=== PATIENT | female | born 1950 | race Caucasian/White ===

== ENCOUNTER → 2023-12-19 07:29 | Outpatient (REF) | payer OTHER, SELFPAY | LOC: RAD 07:29 | PROVIDERS: ATTENDING PHYSICIAN Nurse Practitioner Family | DX: Z87.891 Personal history of nicotine dependence (principal) | CPT/HCPCS: 71271 ==

== ENCOUNTER → 2024-01-01 08:03 | Outpatient (REF) | payer OTHER, SELFPAY | LOC: RAD 08:03 | PROVIDERS: ATTENDING PHYSICIAN Nurse Practitioner Family | DX: M81.0 Age-related osteoporosis without current pathological fracture (principal) | CPT/HCPCS: 77080 ==

== ENCOUNTER → 2024-01-07 07:54 | Outpatient (REF) | payer OTHER, SELFPAY | LOC: PET 07:54 | PROVIDERS: ATTENDING PHYSICIAN Nurse Practitioner Family | DX: R91.8 Other nonspecific abnormal finding of lung field (principal); Z85.3 Personal history of malignant neoplasm of breast | CPT/HCPCS: 78815; A9552 ==

== ENCOUNTER → 2024-01-28 09:30 | Outpatient (REF) | payer OTHER, SELFPAY ==
[2024-01-28] VITALS (8 sets, daily range): BP systolic 74–146; BP diastolic 77–100
[2024-01-28 10:11] LABS: % Basophils 0.5 % (0-2); % Eosinophils 1.6 % (0-6); % Immature Granulocytes 0.9 % (0-0.5); % Lymphocytes 35.7 % (20.5-51.1); % Monocytes 8.4 % (1.7-9.3); % Neutrophils 52.9 % (42.2-75.2); Absolute Eosinophils 0.1 10^3/uL (0-0.7); Absolute Immature Granulocytes 0.1 10^3/uL (0-0.05); Absolute Monocytes 0.5 10^3/uL (0.1-0.6); Absolute Neutrophils 2.9 10^3/uL (1.4-6.5); Hematocrit 35.4 % (37.0-47.0); Hemoglobin 11.3 g/dL (12.0-16.0); Mean Corp Hgb Conc. 31.9 g/dL (33.0-37.0); Mean Corpuscular Hgb 29.7 pg (27.0-31.0); Mean Corpuscular Volume 93.2 fL (81.0-99.0); Mean Platelet Volume 8.8 fL (7.4-10.4); Nucleated Red Blood Cells % 0 %; Platelet Count 241 10^3/uL (130-400); White Blood Cell Count 5.5 10^3/uL (4.8-10.8)
[2024-01-28 10:23] LABS: INR 0.94; PT 12.8 Sec (11.4-14.6)
== END ==
LOC: RADI 09:30
PROVIDERS: ATTENDING PHYSICIAN Internal Medicine Hematology & Oncology; FAMILY PHYSICIAN Nurse Practitioner Family
DX: C79.51 Secondary malignant neoplasm of bone (principal); C50.112 Malignant neoplasm of central portion of left female breast; D68.8 Other specified coagulation defects
CPT/HCPCS: 88307; 88311; 20225; 36415; 77012; 85025; 85610; 88333; 88334; 88341; 88342; 88360; 99152; 99153

== ENCOUNTER → 2024-03-07 08:25 | Outpatient (REF) | payer OTHER, SELFPAY ==
[2024-03-07 08:50] VITALS: BP 122/78; BP_SYST 72
[2024-03-07] MEDS: ANCEF 10 IV (09:11)
[2024-03-07 10:34] VITALS: BP 131/49
== END ==
LOC: RADI 08:25
PROVIDERS: ATTENDING PHYSICIAN Internal Medicine Hematology & Oncology; FAMILY PHYSICIAN Nurse Practitioner Family
DX: C50.112 Malignant neoplasm of central portion of left female breast (principal); C79.51 Secondary malignant neoplasm of bone
CPT/HCPCS: 36561; 76937; 77001; 99152; 99153; C1788

== ENCOUNTER → 2024-03-10 16:28 | Outpatient (REF) | payer OTHER, SELFPAY ==
[2024-03-10 12:43] LABS: % Basophils 0.8 % (0-2); % Eosinophils 5.2 % (0-6); % Immature Granulocytes 0.6 % (0-0.5); % Lymphocytes 37.8 % (20.5-51.1); % Monocytes 6.8 % (1.7-9.3); % Neutrophils 48.8 % (42.2-75.2); Absolute Eosinophils 0.3 10^3/uL (0-0.7); Absolute Monocytes 0.4 10^3/uL (0.1-0.6); Absolute Neutrophils 2.5 10^3/uL (1.4-6.5); Hematocrit 30.6 % (37.0-47.0); Hemoglobin 9.9 g/dL (12.0-16.0); Mean Corp Hgb Conc. 32.4 g/dL (33.0-37.0); Mean Corpuscular Hgb 30.2 pg (27.0-31.0); Mean Corpuscular Volume 93.3 fL (81.0-99.0); Mean Platelet Volume 8.6 fL (7.4-10.4); Platelet Count 214 10^3/uL (130-400); Red Blood Cell Count 3.28 10^6/uL (4.20-5.40); Red Cell Dist. Width 17.1 % (11.5-14.5); White Blood Cell Count 5.2 10^3/uL (4.8-10.8)
[2024-03-10 13:22] LABS: ALT (SGPT) 153 U/L (0-35); AST (SGOT) 102 U/L (14-36); Alkaline Phosphatase 287 U/L (38-126); Blood Urea Nitrogen 18 mg/dl (7-17); Calcium 8.7 mg/dl (8.4-10.2); Carbon Dioxide 27 mmol/L (22-30); Chloride 101 mmol/L (98-107); Glucose 96 mg/dl (70-99); Potassium 4.2 mmol/L (3.5-5.1); Sodium 137 mmol/L (135-145); Total Bilirubin 0.7 mg/dl (0.2-1.3); Total Protein 6.9 g/dl (6.3-8.2); eGFR > 60.00
[2024-03-10 13:38] LABS: Free T3 3.15 pg/ml (2.77-5.27); Free T4 1.03 ng/dl (0.78-2.19)
[2024-03-10 13:52] LABS: TSH 3.58 uIU/ml (0.47-4.68)
== END ==
LOC: OIDL 16:28
PROVIDERS: ATTENDING PHYSICIAN Internal Medicine Hematology & Oncology
DX: C50.112 Malignant neoplasm of central portion of left female breast (principal)
CPT/HCPCS: 80053; 84439; 84443; 84481; 85025; 86300

== ENCOUNTER → 2024-03-12 13:42 | Outpatient (REF) | payer OTHER, SELFPAY | LOC: RAD 13:42 | PROVIDERS: ATTENDING PHYSICIAN Nurse Practitioner Adult Health; FAMILY PHYSICIAN Nurse Practitioner Family | DX: R74.01 Elevation of levels of liver transaminase levels (principal); C50.112 Malignant neoplasm of central portion of left female breast; C79.51 Secondary malignant neoplasm of bone | CPT/HCPCS: 76700 ==

== ENCOUNTER → 2024-03-13 15:40 | Outpatient (REF) | payer OTHER, SELFPAY | LOC: WDC 15:40 | PROVIDERS: ATTENDING PHYSICIAN Nurse Practitioner Family | DX: Z12.31 Encounter for screening mammogram for malignant neoplasm of breast (principal) | CPT/HCPCS: 77063; 77067 ==

== ENCOUNTER → 2024-03-31 13:01 | Outpatient (REF) | payer OTHER, SELFPAY ==
[2024-03-31 12:45] LABS: % Basophils 0.6 % (0-2); % Eosinophils 1.9 % (0-6); % Immature Granulocytes 0.8 % (0-0.5); % Monocytes 11.9 % (1.7-9.3); % Neutrophils 48.8 % (42.2-75.2); Absolute Eosinophils 0.1 10^3/uL (0-0.7); Absolute Lymphocytes 1.7 10^3/uL (1.2-3.4); Absolute Monocytes 0.6 10^3/uL (0.1-0.6); Absolute Neutrophils 2.3 10^3/uL (1.4-6.5); Hematocrit 31.8 % (37.0-47.0); Hemoglobin 10.2 g/dL (12.0-16.0); Mean Corp Hgb Conc. 32.1 g/dL (33.0-37.0); Mean Corpuscular Hgb 30.4 pg (27.0-31.0); Mean Corpuscular Volume 94.6 fL (81.0-99.0); Mean Platelet Volume 8.9 fL (7.4-10.4); Platelet Count 283 10^3/uL (130-400); Red Blood Cell Count 3.36 10^6/uL (4.20-5.40); Red Cell Dist. Width 18.2 % (11.5-14.5); White Blood Cell Count 4.8 10^3/uL (4.8-10.8)
[2024-03-31 13:52] LABS: ALT (SGPT) 81 U/L (0-35); AST (SGOT) 52 U/L (14-36); Albumin 4.6 g/dl (3.5-5.0); Alkaline Phosphatase 251 U/L (38-126); Blood Urea Nitrogen 26 mg/dl (7-17); Calcium 9.2 mg/dl (8.4-10.2); Carbon Dioxide 26 mmol/L (22-30); Chloride 100 mmol/L (98-107); Glucose 83 mg/dl (70-99); Potassium 4.4 mmol/L (3.5-5.1); Sodium 134 mmol/L (135-145); Total Protein 7.5 g/dl (6.3-8.2); eGFR > 60.00
== END ==
LOC: OIDL 13:01
PROVIDERS: ATTENDING PHYSICIAN Internal Medicine Hematology & Oncology
DX: C50.112 Malignant neoplasm of central portion of left female breast (principal)
CPT/HCPCS: 80053; 85025

== ENCOUNTER → 2024-04-04 09:57 | Outpatient (REF) | payer OTHER, SELFPAY ==
[2024-04-04 10:59] LABS: % Basophils 0.7 % (0-2); % Immature Granulocytes 0.3 % (0-0.5); % Lymphocytes 34.4 % (20.5-51.1); % Monocytes 6.9 % (1.7-9.3); % Neutrophils 56.7 % (42.2-75.2); Absolute Lymphocytes 1.1 10^3/uL (1.2-3.4); Absolute Monocytes 0.2 10^3/uL (0.1-0.6); Absolute Neutrophils 1.7 10^3/uL (1.4-6.5); Hematocrit 30.2 % (37.0-47.0); Hemoglobin 9.8 g/dL (12.0-16.0); Mean Corp Hgb Conc. 32.5 g/dL (33.0-37.0); Mean Corpuscular Hgb 30.3 pg (27.0-31.0); Mean Corpuscular Volume 93.5 fL (81.0-99.0); Mean Platelet Volume 9.1 fL (7.4-10.4); Nucleated Red Blood Cells % 0 %; Platelet Count 200 10^3/uL (130-400); Red Blood Cell Count 3.23 10^6/uL (4.20-5.40); Red Cell Dist. Width 17.8 % (11.5-14.5); White Blood Cell Count 3.1 10^3/uL (4.8-10.8)
[2024-04-04 11:51] LABS: ALT (SGPT) 71 U/L (0-35); AST (SGOT) 67 U/L (14-36); Albumin 4.4 g/dl (3.5-5.0); Alkaline Phosphatase 261 U/L (38-126); Blood Urea Nitrogen 18 mg/dl (7-17); Carbon Dioxide 22 mmol/L (22-30); Chloride 104 mmol/L (98-107); Glucose 134 mg/dl (70-99); Sodium 135 mmol/L (135-145); Total Bilirubin 0.9 mg/dl (0.2-1.3); Total Protein 7.1 g/dl (6.3-8.2); eGFR > 60.00
[2024-04-04 12:02] LABS: Free T4 3.65 ng/dl (0.78-2.19)
[2024-04-04 12:15] LABS: TSH < 0.02 uIU/ml (0.47-4.68)
[2024-04-06 20:22] LABS: Total T3 (Sendout) 329 ng/dL (80-200)
== END ==
LOC: REG 09:57
PROVIDERS: ATTENDING PHYSICIAN Internal Medicine Hematology & Oncology; FAMILY PHYSICIAN Nurse Practitioner Family
DX: C50.112 Malignant neoplasm of central portion of left female breast (principal); C79.51 Secondary malignant neoplasm of bone
CPT/HCPCS: 36415; 80053; 84439; 84443; 84480; 85025

== ENCOUNTER → 2024-04-18 10:58 | Outpatient (REF) | payer OTHER, SELFPAY ==
[2024-04-18 12:22] LABS: ALT (SGPT) 53 U/L (0-35); AST (SGOT) 46 U/L (14-36); Albumin 3.7 g/dl (3.5-5.0); Alkaline Phosphatase 274 U/L (38-126); Blood Urea Nitrogen 24 mg/dl (7-17); Calcium 7.9 mg/dl (8.4-10.2); Carbon Dioxide 23 mmol/L (22-30); Chloride 107 mmol/L (98-107); Glucose 95 mg/dl (70-99); Potassium 4.4 mmol/L (3.5-5.1); Sodium 137 mmol/L (135-145); Total Bilirubin 0.5 mg/dl (0.2-1.3); Total Protein 6.5 g/dl (6.3-8.2); eGFR > 60.00
[2024-04-18 12:24] LABS: Hematocrit 24.9 % (37.0-47.0); Hemoglobin 8.2 g/dL (12.0-16.0); Mean Corp Hgb Conc. 32.9 g/dL (33.0-37.0); Mean Corpuscular Hgb 30.4 pg (27.0-31.0); Mean Corpuscular Volume 92.2 fL (81.0-99.0); Mean Platelet Volume 10.2 fL (7.4-10.4); Platelet Count 122 10^3/uL (130-400); Red Cell Dist. Width 18.6 % (11.5-14.5); White Blood Cell Count 15.1 10^3/uL (4.8-10.8)
[2024-04-18 13:17] LABS: % Basophils 0.8 % (0-2); % Eosinophils 0.4 % (0-6); % Immature Granulocytes 12.9 % (0-0.5); % Lymphocytes 17.6 % (20.5-51.1); % Neutrophils 59.3 % (42.2-75.2); Absolute Basophils 0.1 10^3/uL (0-0.2); Absolute Eosinophils 0.1 10^3/uL (0-0.7); Absolute Lymphocytes 2.7 10^3/uL (1.2-3.4); Absolute Monocytes 1.4 10^3/uL (0.1-0.6); Absolute Neutrophils 8.9 10^3/uL (1.4-6.5); Nucleated Red Blood Cells % 0.5 %
== END ==
LOC: REG 10:58
PROVIDERS: ATTENDING PHYSICIAN Internal Medicine Hematology & Oncology; FAMILY PHYSICIAN Nurse Practitioner Family
DX: C50.112 Malignant neoplasm of central portion of left female breast (principal); C79.51 Secondary malignant neoplasm of bone; R74.01 Elevation of levels of liver transaminase levels
CPT/HCPCS: 36415; 80053; 85025; 86300

== ENCOUNTER → 2024-04-25 11:26 | Outpatient (REF) | payer OTHER, SELFPAY ==
[2024-04-25 12:36] LABS: % Basophils 0.3 % (0-2); % Eosinophils 0.5 % (0-6); % Lymphocytes 25.5 % (20.5-51.1); % Monocytes 5.3 % (1.7-9.3); % Neutrophils 67.4 % (42.2-75.2); Absolute Monocytes 0.2 10^3/uL (0.1-0.6); Absolute Neutrophils 2.7 10^3/uL (1.4-6.5); Hematocrit 26.6 % (37.0-47.0); Hemoglobin 8.8 g/dL (12.0-16.0); Mean Corp Hgb Conc. 33.1 g/dL (33.0-37.0); Mean Corpuscular Hgb 30.3 pg (27.0-31.0); Mean Corpuscular Volume 91.7 fL (81.0-99.0); Nucleated Red Blood Cells % 0.8 %
[2024-04-25 13:30] LABS: ALT (SGPT) 88 U/L (0-35); AST (SGOT) 72 U/L (14-36); Albumin 4.3 g/dl (3.5-5.0); Alkaline Phosphatase 248 U/L (38-126); Blood Urea Nitrogen 30 mg/dl (7-17); Calcium 8.4 mg/dl (8.4-10.2); Carbon Dioxide 23 mmol/L (22-30); Chloride 100 mmol/L (98-107); Glucose 89 mg/dl (70-99); Potassium 4.5 mmol/L (3.5-5.1); Sodium 134 mmol/L (135-145); Total Bilirubin 0.9 mg/dl (0.2-1.3); Total Protein 7.1 g/dl (6.3-8.2); eGFR > 60.00
[2024-04-25 13:38] LABS: Mean Platelet Volume 10.3 fL (7.4-10.4); Platelet Count 90 10^3/uL (130-400)
== END ==
LOC: REG 11:26
PROVIDERS: ATTENDING PHYSICIAN Internal Medicine Hematology & Oncology; FAMILY PHYSICIAN Nurse Practitioner Family
DX: C50.112 Malignant neoplasm of central portion of left female breast (principal); C79.51 Secondary malignant neoplasm of bone
CPT/HCPCS: 36415; 80053; 85025

== ENCOUNTER → 2024-04-28 19:47 | Outpatient (REF) | payer OTHER, SELFPAY | LOC: MRI 3T 19:47 | PROVIDERS: ATTENDING PHYSICIAN Internal Medicine Hematology & Oncology; FAMILY PHYSICIAN Nurse Practitioner Family | DX: C50.112 Malignant neoplasm of central portion of left female breast (principal); C79.51 Secondary malignant neoplasm of bone; R74.01 Elevation of levels of liver transaminase levels | CPT/HCPCS: 70553; A9575 ==

== ENCOUNTER → 2024-05-09 08:19 | Outpatient (REF) | payer OTHER, SELFPAY ==
[2024-05-09 09:21] LABS: Hemoglobin 7.8 g/dL (12.0-16.0); Mean Corp Hgb Conc. 32.5 g/dL (33.0-37.0); Mean Corpuscular Hgb 31.1 pg (27.0-31.0); Mean Corpuscular Volume 95.6 fL (81.0-99.0); Mean Platelet Volume 9.6 fL (7.4-10.4); Platelet Count 183 10^3/uL (130-400); Red Blood Cell Count 2.51 10^6/uL (4.20-5.40); Red Cell Dist. Width 20.3 % (11.5-14.5)
[2024-05-09 09:53] LABS: ALT (SGPT) 50 U/L (0-35); AST (SGOT) 42 U/L (14-36); Albumin 3.8 g/dl (3.5-5.0); Alkaline Phosphatase 202 U/L (38-126); Blood Urea Nitrogen 19 mg/dl (7-17); Calcium 8.4 mg/dl (8.4-10.2); Carbon Dioxide 25 mmol/L (22-30); Chloride 102 mmol/L (98-107); Glucose 83 mg/dl (70-99); Iron 156 ug/dl (37-170); Potassium 4.5 mmol/L (3.5-5.1); Sodium 137 mmol/L (135-145); Total Bilirubin 0.6 mg/dl (0.2-1.3); Total Protein 6.7 g/dl (6.3-8.2); eGFR > 60.00
[2024-05-09 10:03] LABS: Percent Saturation 60 % (20-50); Total Iron Binding Capacity 258 ug/dl (265-497)
[2024-05-09 10:05] LABS: Free T4 0.15 ng/dl (0.78-2.19)
[2024-05-09 10:16] LABS: Absolute Neutrophils -Man Diff 11.2 10^3/uL (1.4-6.5); Band Neutrophils 10 % (0-3); Eosinophils 1 % (0-6); Lymphocytes 19 % (20-51); Segmented Neutrophils 65 % (42-75)
[2024-05-09 10:17] LABS: Anisocytosis 1+; Hypochromasia 1+; Metamyelocytes 5 % (-); Normal RBC Morphology No; Ovalocytes 1+; Platelets Checked Yes; Polychromasia 1+
[2024-05-09 10:18] LABS: Total Cells Counted 100
[2024-05-09 10:55] LABS: Folate 14.3 ng/ml (2.76-20); Vitamin B12 > 1000 pg/ml (239-931)
[2024-05-11 01:04] LABS: Total T3 (Sendout) 29 ng/dL (80-200)
== END ==
LOC: REG 08:19
PROVIDERS: ATTENDING PHYSICIAN Nurse Practitioner Adult Health; FAMILY PHYSICIAN Nurse Practitioner Family
DX: C50.112 Malignant neoplasm of central portion of left female breast (principal); C79.51 Secondary malignant neoplasm of bone; R74.01 Elevation of levels of liver transaminase levels
CPT/HCPCS: 36415; 80053; 82607; 82728; 82746; 83540; 83550; 84439; 84443; 84480; 85025

== ENCOUNTER 2024-05-13 09:51 | Outpatient (RCR) | payer OTHER, SELFPAY ==
[2024-05-12 13:22] LABS: % Basophils 0.7 % (0-2); % Eosinophils 0.9 % (0-6); % Immature Granulocytes 9.1 % (0-0.5); % Lymphocytes 16.3 % (20.5-51.1); % Monocytes 3.9 % (1.7-9.3); % Neutrophils 69.1 % (42.2-75.2); Absolute Basophils 0.1 10^3/uL (0-0.2); Absolute Eosinophils 0.1 10^3/uL (0-0.7); Absolute Immature Granulocytes 1.3 10^3/uL (0-0.05); Absolute Lymphocytes 2.2 10^3/uL (1.2-3.4); Absolute Monocytes 0.5 10^3/uL (0.1-0.6); Absolute Neutrophils 9.5 10^3/uL (1.4-6.5); Hemoglobin 7.7 g/dL (12.0-16.0); Mean Corp Hgb Conc. 32.1 g/dL (33.0-37.0); Mean Corpuscular Volume 96.8 fL (81.0-99.0); Mean Platelet Volume 10.4 fL (7.4-10.4); Nucleated Red Blood Cells % 2.2 %; Platelet Count 120 10^3/uL (130-400); Red Blood Cell Count 2.48 10^6/uL (4.20-5.40); Red Cell Dist. Width 20.6 % (11.5-14.5); White Blood Cell Count 13.8 10^3/uL (4.8-10.8)
[2024-05-12 13:40] LABS: ALT (SGPT) 55 U/L (0-35); AST (SGOT) 57 U/L (14-36); Albumin 3.8 g/dl (3.5-5.0); Alkaline Phosphatase 224 U/L (38-126); Blood Urea Nitrogen 18 mg/dl (7-17); Carbon Dioxide 27 mmol/L (22-30); Chloride 103 mmol/L (98-107); Glucose 85 mg/dl (70-99); Potassium 4.3 mmol/L (3.5-5.1); Sodium 135 mmol/L (135-145); Total Bilirubin 0.6 mg/dl (0.2-1.3); Total Protein 6.8 g/dl (6.3-8.2); eGFR > 60.00
[2024-05-13] MEDS: TYLENOL 650 MG PO (10:24)
[2024-05-13 10:37] VITALS: BP 147/79
[2024-05-13 10:54] VITALS: BP 125/76
[2024-05-13 12:46] VITALS: BP 122/74
== END 2024-05-26 23:59 | disposition home or self-care (01) ==
LOC: OID 09:51
PROVIDERS: ATTENDING PHYSICIAN Internal Medicine Hematology & Oncology; FAMILY PHYSICIAN Family Medicine
DX: C50.112 Malignant neoplasm of central portion of left female breast (principal); C79.51 Secondary malignant neoplasm of bone; R74.01 Elevation of levels of liver transaminase levels
CPT/HCPCS: 36430; 80053; 85025; 86850; 86900; 86901; 86920; P9016

== ENCOUNTER 2024-05-14 09:26 | Emergency (ER) | payer OTHER, SELFPAY ==
[2024-05-14 09:28] VITALS: BP 157/92
--- NOTE | 2024-05-14 10:12 | ED.GENMED ---
History of Present Illness
General
Chief Complaint: DVT/Possible Blood Clot
Source: patient
Time Seen by Provider: 05/14/24 09:37
Nursing documentation reviewed up to this point in time: agreed with
History of Present Illness
History of Present Illness:
73 yr old female presents to the ER for evaluation. Patient has a history of metastatic breast cancer and is currently going through chemotherapy. She is followed by Dr. Koroma she has had some right lower leg calf discomfort for the past several
days. She was sent to rule out DVT. She has no prior history of DVT. She is on aspirin. She is chronically short of breath she does have metastatic cancer into her lung. She did receive a transfusion yesterday reports shortness of breath is
much improved since then but the shortness of breath is not new and it is chronic. She has no other complaints.
She denies any injury redness fever chills.
Review of Systems
Review of Systems
Allergies reviewed?: Yes
All Other Systems: ROS reviewed and negative except as documented in HPI and ROS
Constitutional: Reports no symptoms
Respiratory: Reports other (chronic mild SOB not new )
Phy Exam
General Physical Exam
General Presentation: no apparent distress
General Skin: warm and dry
General Habitus: normal
General Mental: alert
General Hydration: appears well hydrated
Cardiovascular Exam
Cardiovascular Exam: regular rate/rhythm, no murmur and normal peripheral pulses
Pulmonary Exam
Pulmonary Exam: lungs clear and no respiratory distress
Neurological Exam
Neurological Exam: alert and oriented x3
Musculoskeletal Exam
Musculoskeletal Exam: other (strong pulses b/l l/ with mild tenderness to right calf no obvious significant swelling no erythema )
Skin Exam
Skin Exam: normal color and warm/dry
Psychiatric Exam
Psychiatric Exam: normal mood/affect
Course
Orders/Labs/Results
Orders:
Orders
05/14/24 09:47
Venous Doppler Lwr Ext Rt [US Periph Venous LOWER Ext RT] Urgent
Comment:
Reason For Exam: pain right calf
05/14/24 11:06
Complete Blood Count/With Diff Urgent
Comprehensive Metabolic Panel Urgent
05/14/24 14:25
Apixaban [Eliquis] 10 mg PO NOW STA
Abnormal Lab Results
05/14/24
11:06
RBC 2.99 L 10^6/uL
(4.20-5.40)
Hgb 9.3 L D g/dL
(12.0-16.0)
Hct 27.8 L %
(37.0-47.0)
MCH 31.1 H pg
(27.0-31.0)
RDW 20.6 H %
(11.5-14.5)
Plt Count 95 L D 10^3/uL
(130-400)
MPV 10.6 H fL
(7.4-10.4)
Abs Immat Gran (auto) 0.4 H 10^3/uL
(0-0.05)
Immature Gran % 5.2 H %
(0-0.5)
Lymphocytes % 14.5 L %
(20.5-51.1)
BUN 20 H mg/dl
(7-17)
Calcium 7.9 L mg/dl
(8.4-10.2)
AST 67 H U/L
(14-36)
ALT 67 H U/L
(0-35)
Alkaline Phosphatase 233 H U/L
(38-126)
05/14/24 11:06
05/14/24 11:06
Vital Signs
Initial and Last Documented VS:
Initial Vital Signs
Temp Pulse Resp BP Pulse Ox
98.7 F 78 18 157/92 100
05/14/24 09:28 05/14/24 09:28 05/14/24 09:28 05/14/24 09:28 05/14/24 09:28
Last Documented Vital Signs
Temp Pulse Resp BP Pulse Ox
98.7 F 80 16 127/88 97
05/14/24 09:28 05/14/24 14:51 05/14/24 14:51 05/14/24 14:51 05/14/24 14:51
MDM/Problems Addressed
Differential Diagnosis Includes:
not limited to: calf /muscle pain/dvt
MDM/Problems Addressed:
Patient is a 73-year-old female who has a history metastatic breast cancer presented for pain to the right calf. Ultrasound does show DVT. Case discussed with Dr. Gibbs. Labs unremarkable. Patient will be discharged on Eliquis with close
outpatient follow family doctor and oncology. Patient instructed on use of blood thinners
*Radiology
Radiology exam reviewed: radiology read reviewed
*Pulse Oximetry
Patient hypoxic: no
*Critical Care Note
Total Time (30-74mins, 75-104mins- exclusive of procedures): Not Applicable
Patient Management
Discussion with other providers: Termite [employer]er (DR Gibbs )
ED Attending Note
-
Portions of this chart may have been created with voice recognition software.� Occasional wrong word or��sound alike� substitutions may have occurred due to the inherent limitations of voice recognition software.
Discharge Plan
Departure
Patient Disposition: Home (Routine Discharge)
Date of Disposition: 05/14/24
Time of Disposition: 14:28
Patient with high blood pressure during this ER visit?: Yes
Condition: Fair
Covid-19: Not Applicable
Discharge Problem:
DVT (deep venous thrombosis)
Instructions: Deep Vein Thrombosis (Blood Clots in the Legs) (DC), How to take anticoagulants safely
Prescriptions:
New
Eliquis 5 mg tablet
5 mg PO BID Qty: 70 0RF
Rx Instructions:
10 mg twice daily for 7 days followed by 5 mg twice daily
No Action
ascorbic acid (vitamin C) [Vitamin C] 1,000 mg Tablet
1,000 mg PO DAILY
albuterol sulfate 2.5 mg /3 mL (0.083 %) Solution For Nebulization
2.5 mg INHALATION Q4H
bupropion HCl 100 mg Tablet
100 mg PO BID
multivitamin Capsule
1 cap PO DAILY
fluticasone propionate [Flonase Allergy Relief] 50 mcg/actuation Debary,Suspension
1 spray INTRANASAL DAILY
cholecalciferol (vitamin D3) [Vitamin D3] 25 mcg (1,000 unit) Capsule
25 mcg PO DAILY
Fish Oil 900-1,400 mg Capsule,Delayed Release(Dr/Ec)
1 cap PO DAILY
calcium carb, citrate-vit D3 600 mg-12.5 mcg (500 unit) Tablet Extended Release
2 tab PO DAILY
aspirin 81 mg Capsule
81 mg PO DAILY
mecobalamin (vitamin B12) 500 mcg Tablet,Chewable
1 mcg PO DAILY
coenzyme Q10 [Co Q-10] 400 mg Capsule
400 mg PO DAILY
loratadine [Claritin] 10 mg Tablet
10 mg PO DAILY
magnesium 200 mg Tablet
400 mg PO DAILY
levothyroxine 25 mcg Capsule
25 mcg PO DAILY
Referrals:
Maeve Evans CRNP [Family Provider] -
Interventions
Interventions:
*Risk Screen - Suicide Last Done: 05/14/24 09:28
*General Assessment Last Done: 05/14/24 09:28
*Neglect/Abuse Screening Last Done: 05/14/24 09:28
*ED- Fall Risk Assessment Last Done: 05/14/24 14:51
*ED COVID-19 Vaccine History Last Done: 05/14/24 14:51
*Nursing Disposition Last Done: 05/14/24 14:51
ED- Cardiac Assessment Last Done: 05/14/24 14:51
ED- Pulmonary Assessment Last Done: 05/14/24 11:41
ED-Skin Assessment Last Done: 05/14/24 11:41
Discharge Date and Time
Discharge Date/Time: 05/14/24 14:52
Print Language: PORTUGUESE
[2024-05-14 11:05] VITALS: BMI 28.3
[2024-05-14 11:31] LABS: Hematocrit 27.8 % (37.0-47.0); Hemoglobin 9.3 g/dL (12.0-16.0); Mean Corp Hgb Conc. 33.5 g/dL (33.0-37.0); Mean Corpuscular Hgb 31.1 pg (27.0-31.0); Red Blood Cell Count 2.99 10^6/uL (4.20-5.40); Red Cell Dist. Width 20.6 % (11.5-14.5); White Blood Cell Count 8.5 10^3/uL (4.8-10.8)
[2024-05-14 11:38] LABS: ALT (SGPT) 67 U/L (0-35); AST (SGOT) 67 U/L (14-36); Albumin 3.9 g/dl (3.5-5.0); Alkaline Phosphatase 233 U/L (38-126); Blood Urea Nitrogen 20 mg/dl (7-17); Calcium 7.9 mg/dl (8.4-10.2); Carbon Dioxide 26 mmol/L (22-30); Chloride 102 mmol/L (98-107); Estimated Creatinine Clearance 51 ml/min; Glucose 89 mg/dl (70-99); Potassium 4.3 mmol/L (3.5-5.1); Sodium 135 mmol/L (135-145); Total Protein 6.9 g/dl (6.3-8.2); eGFR > 60.00
[2024-05-14 11:56] LABS: Platelet Count 95 10^3/uL (130-400)
[2024-05-14 11:57] LABS: Mean Platelet Volume 10.6 fL (7.4-10.4)
[2024-05-14 11:59] LABS: % Basophils 0.9 % (0-2); % Eosinophils 0.4 % (0-6); % Immature Granulocytes 5.2 % (0-0.5); % Lymphocytes 14.5 % (20.5-51.1); % Monocytes 3.8 % (1.7-9.3); % Neutrophils 75.2 % (42.2-75.2); Absolute Basophils 0.1 10^3/uL (0-0.2); Absolute Immature Granulocytes 0.4 10^3/uL (0-0.05); Absolute Lymphocytes 1.2 10^3/uL (1.2-3.4); Absolute Monocytes 0.3 10^3/uL (0.1-0.6); Absolute Neutrophils 6.4 10^3/uL (1.4-6.5); Nucleated Red Blood Cells % 4.7 %
--- NOTE | 2024-05-14 12:30 | EDRN ---
LESTER Purcell back in to update patient on plan of care, patient resting comfortably.
--- NOTE | 2024-05-14 13:42 | EDRN ---
Updated patient on plan, patient ambulated to the restroom and back in bed reading a book
[2024-05-14] MEDS: ELIQUIS 10 MG PO (14:41)
--- NOTE | 2024-05-14 14:43 | CM ---
Patient requested cost of eliquis and xarelto. Coupons provided and cost per [facility] reviewed with patient and PA. Patient confirmed no needs.
[2024-05-14 14:51] VITALS: BP 127/88
== END 2024-05-14 14:52 | disposition home or self-care (01) ==
LOC: EMR 09:26
PROVIDERS: Nurse Practitioner; EMERGENCY PHYSICIAN Emergency Medicine; FAMILY PHYSICIAN Nurse Practitioner Family
DX: I82.441 Acute embolism and thrombosis of right tibial vein (principal); I82.461 Acute embolism and thrombosis of right calf muscular vein; C50.919 Malignant neoplasm of unspecified site of unspecified female breast; C78.00 Secondary malignant neoplasm of unspecified lung; Z79.82 Long term (current) use of aspirin; Z79.60 Long term (current) use of unspecified immunomodulators and immunosuppressants
CPT/HCPCS: 99284; 80053; 85025; 93971

== ENCOUNTER → 2024-05-16 11:44 | Outpatient (REF) | payer OTHER, SELFPAY ==
[2024-05-16 12:22] LABS: % Basophils 0.9 % (0-2); % Eosinophils 0.5 % (0-6); % Immature Granulocytes 1.8 % (0-0.5); % Lymphocytes 24.3 % (20.5-51.1); % Monocytes 4.1 % (1.7-9.3); % Neutrophils 68.4 % (42.2-75.2); Absolute Basophils 0.1 10^3/uL (0-0.2); Absolute Immature Granulocytes 0.1 10^3/uL (0-0.05); Absolute Lymphocytes 1.4 10^3/uL (1.2-3.4); Absolute Monocytes 0.2 10^3/uL (0.1-0.6); Absolute Neutrophils 3.8 10^3/uL (1.4-6.5); Hematocrit 28.1 % (37.0-47.0); Hemoglobin 9.2 g/dL (12.0-16.0); Mean Corp Hgb Conc. 32.7 g/dL (33.0-37.0); Mean Corpuscular Hgb 30.5 pg (27.0-31.0); Mean Platelet Volume 10.4 fL (7.4-10.4); Nucleated Red Blood Cells % 1.6 %; Platelet Count 108 10^3/uL (130-400); Red Blood Cell Count 3.02 10^6/uL (4.20-5.40); White Blood Cell Count 5.6 10^3/uL (4.8-10.8)
[2024-05-16 13:25] LABS: ALT (SGPT) 61 U/L (0-35); AST (SGOT) 59 U/L (14-36); Albumin 4.4 g/dl (3.5-5.0); Alkaline Phosphatase 264 U/L (38-126); Blood Urea Nitrogen 22 mg/dl (7-17); Carbon Dioxide 24 mmol/L (22-30); Chloride 100 mmol/L (98-107); Glucose 92 mg/dl (70-99); Potassium 4.4 mmol/L (3.5-5.1); Sodium 135 mmol/L (135-145); Total Bilirubin 0.7 mg/dl (0.2-1.3); Total Protein 7.3 g/dl (6.3-8.2); eGFR > 60.00
== END ==
LOC: REG 11:44
PROVIDERS: ATTENDING PHYSICIAN Internal Medicine Hematology & Oncology; FAMILY PHYSICIAN Nurse Practitioner Family
DX: C50.112 Malignant neoplasm of central portion of left female breast (principal); C79.51 Secondary malignant neoplasm of bone
CPT/HCPCS: 36415; 80053; 85025

== ENCOUNTER → 2024-05-23 10:55 | Outpatient (REF) | payer OTHER, SELFPAY ==
[2024-05-23 11:33] LABS: Hematocrit 27.1 % (37.0-47.0); Hemoglobin 8.7 g/dL (12.0-16.0); Mean Corp Hgb Conc. 32.1 g/dL (33.0-37.0); Mean Corpuscular Hgb 30.7 pg (27.0-31.0); Mean Corpuscular Volume 95.8 fL (81.0-99.0); Mean Platelet Volume 10.7 fL (7.4-10.4); Platelet Count 159 10^3/uL (130-400); Red Blood Cell Count 2.83 10^6/uL (4.20-5.40); Red Cell Dist. Width 19.9 % (11.5-14.5); White Blood Cell Count 5.3 10^3/uL (4.8-10.8)
[2024-05-23 11:44] LABS: ALT (SGPT) 39 U/L (0-35); AST (SGOT) 40 U/L (14-36); Albumin 3.9 g/dl (3.5-5.0); Alkaline Phosphatase 167 U/L (38-126); Blood Urea Nitrogen 23 mg/dl (7-17); Calcium 8.5 mg/dl (8.4-10.2); Carbon Dioxide 27 mmol/L (22-30); Chloride 103 mmol/L (98-107); Glucose 76 mg/dl (70-99); Potassium 4.3 mmol/L (3.5-5.1); Sodium 138 mmol/L (135-145); Total Protein 6.7 g/dl (6.3-8.2); eGFR > 60.00
[2024-05-23 12:22] LABS: Absolute Neutrophils -Man Diff 3.2 10^3/uL (1.4-6.5); Anisocytosis 2+; Band Neutrophils 10 % (0-3); Eosinophils 2 % (0-6); Hypochromasia 1+; Lymphocytes 32 % (20-51); Metamyelocytes 1 % (-); Monocytes 4 % (2-9); Normal RBC Morphology No; Nucleated Red Blood Cells 1 (-); Ovalocytes 1+; Platelets Checked Yes; Polychromasia 1+; Segmented Neutrophils 51 % (42-75)
[2024-05-23 12:23] LABS: Total Cells Counted 100
== END ==
LOC: REG 10:55
PROVIDERS: ATTENDING PHYSICIAN Internal Medicine Hematology & Oncology; FAMILY PHYSICIAN Nurse Practitioner Family
DX: C50.112 Malignant neoplasm of central portion of left female breast (principal); C79.51 Secondary malignant neoplasm of bone; R74.01 Elevation of levels of liver transaminase levels
CPT/HCPCS: 36415; 80053; 85025

== ENCOUNTER → 2024-05-30 10:49 | Outpatient (REF) | payer OTHER, SELFPAY ==
[2024-05-30 11:40] LABS: Hemoglobin 8.5 g/dL (12.0-16.0); Mean Corp Hgb Conc. 31.5 g/dL (33.0-37.0); Mean Corpuscular Hgb 30.6 pg (27.0-31.0); Mean Corpuscular Volume 97.1 fL (81.0-99.0); Mean Platelet Volume 9.8 fL (7.4-10.4); Platelet Count 170 10^3/uL (130-400); Red Blood Cell Count 2.78 10^6/uL (4.20-5.40); Red Cell Dist. Width 20.5 % (11.5-14.5); White Blood Cell Count 22.6 10^3/uL (4.8-10.8)
[2024-05-30 12:12] LABS: ALT (SGPT) 32 U/L (0-35); AST (SGOT) 42 U/L (14-36); Albumin 4.3 g/dl (3.5-5.0); Alkaline Phosphatase 235 U/L (38-126); Blood Urea Nitrogen 18 mg/dl (7-17); Calcium 8.3 mg/dl (8.4-10.2); Carbon Dioxide 25 mmol/L (22-30); Chloride 104 mmol/L (98-107); Glucose 81 mg/dl (70-99); Potassium 4.1 mmol/L (3.5-5.1); Sodium 140 mmol/L (135-145); Total Bilirubin 0.8 mg/dl (0.2-1.3); Total Protein 7.2 g/dl (6.3-8.2); eGFR > 60.00
[2024-05-30 12:18] LABS: Free T4 0.17 ng/dl (0.78-2.19)
[2024-05-30 14:22] LABS: Absolute Neutrophils -Man Diff 20.1 10^3/uL (1.4-6.5); Anisocytosis 1+; Band Neutrophils 9 % (0-3); Eosinophils 1 % (0-6); Hypochromasia 1+; Lymphocytes 6 % (20-51); Metamyelocytes 4 % (-); Monocytes 0 % (2-9); Normal RBC Morphology No; Ovalocytes 1+; Platelets Checked Yes; Polychromasia 1+; Segmented Neutrophils 80 % (42-75)
[2024-05-30 14:23] LABS: Total Cells Counted 100
[2024-05-31 19:35] LABS: Total T3 (Sendout) 26 ng/dL (80-200)
== END ==
LOC: RAD 10:49
PROVIDERS: ATTENDING PHYSICIAN Internal Medicine Hematology & Oncology; FAMILY PHYSICIAN Nurse Practitioner Family
DX: C50.112 Malignant neoplasm of central portion of left female breast (principal); C79.51 Secondary malignant neoplasm of bone; R74.01 Elevation of levels of liver transaminase levels
CPT/HCPCS: 36415; 80053; 84439; 84443; 84480; 85025; 93971

== ENCOUNTER → 2024-05-30 11:20 | Outpatient (REF) | payer OTHER, SELFPAY | LOC: PET 11:20 | PROVIDERS: ATTENDING PHYSICIAN Nurse Practitioner Adult Health | DX: C50.112 Malignant neoplasm of central portion of left female breast (principal) | CPT/HCPCS: 36415; 78815; 80053; 84439; 84443; 84480; 85025; 93971; A9552 ==

== ENCOUNTER → 2024-06-13 10:30 | Outpatient (REF) | payer OTHER, SELFPAY ==
[2024-06-13 11:30] LABS: Hematocrit 24.5 % (37.0-47.0); Mean Corp Hgb Conc. 32.7 g/dL (33.0-37.0); Mean Corpuscular Hgb 32.3 pg (27.0-31.0); Mean Corpuscular Volume 98.8 fL (81.0-99.0); Mean Platelet Volume 11.2 fL (7.4-10.4); Platelet Count 124 10^3/uL (130-400); Red Blood Cell Count 2.48 10^6/uL (4.20-5.40); Red Cell Dist. Width 21.6 % (11.5-14.5); White Blood Cell Count 8.6 10^3/uL (4.8-10.8)
[2024-06-13 11:56] LABS: Absolute Neutrophils -Man Diff 7.3 10^3/uL (1.4-6.5); Anisocytosis 1+; Band Neutrophils 4 % (0-3); Hypochromasia Slight; Lymphocytes 9 % (20-51); Metamyelocytes 4 % (-); Myelocytes 1 % (-); Normal RBC Morphology No; Platelets Checked Yes; Polychromasia Slight; Segmented Neutrophils 82 % (42-75); Total Cells Counted 100
[2024-06-13 12:52] LABS: ALT (SGPT) 22 U/L (0-35); AST (SGOT) 36 U/L (14-36); Albumin 4.6 g/dl (3.5-5.0); Alkaline Phosphatase 158 U/L (38-126); Blood Urea Nitrogen 24 mg/dl (7-17); Calcium 8.8 mg/dl (8.4-10.2); Carbon Dioxide 23 mmol/L (22-30); Chloride 103 mmol/L (98-107); Glucose 87 mg/dl (70-99); Potassium 4.1 mmol/L (3.5-5.1); Sodium 139 mmol/L (135-145); Total Protein 7.2 g/dl (6.3-8.2); eGFR > 60.00
== END ==
LOC: REG 10:30
PROVIDERS: ATTENDING PHYSICIAN Internal Medicine Hematology & Oncology; FAMILY PHYSICIAN Nurse Practitioner Family
DX: C50.112 Malignant neoplasm of central portion of left female breast (principal); C79.51 Secondary malignant neoplasm of bone
CPT/HCPCS: 36415; 80053; 85025

== ENCOUNTER → 2024-06-20 09:10 | Outpatient (REF) | payer OTHER, SELFPAY ==
[2024-06-20 10:15] LABS: Hematocrit 25.5 % (37.0-47.0); Hemoglobin 8.2 g/dL (12.0-16.0); Mean Corp Hgb Conc. 32.2 g/dL (33.0-37.0); Mean Corpuscular Volume 99.6 fL (81.0-99.0); Mean Platelet Volume 10.9 fL (7.4-10.4); Platelet Count 163 10^3/uL (130-400); Red Blood Cell Count 2.56 10^6/uL (4.20-5.40); Red Cell Dist. Width 22.3 % (11.5-14.5); White Blood Cell Count 20.6 10^3/uL (4.8-10.8)
[2024-06-20 10:34] LABS: ALT (SGPT) 21 U/L (0-35); AST (SGOT) 31 U/L (14-36); Albumin 4.2 g/dl (3.5-5.0); Alkaline Phosphatase 174 U/L (38-126); Blood Urea Nitrogen 22 mg/dl (7-17); Calcium 8.4 mg/dl (8.4-10.2); Carbon Dioxide 25 mmol/L (22-30); Chloride 103 mmol/L (98-107); Glucose 90 mg/dl (70-99); Potassium 4.2 mmol/L (3.5-5.1); Sodium 140 mmol/L (135-145); Total Bilirubin 0.7 mg/dl (0.2-1.3); Total Protein 7.2 g/dl (6.3-8.2); eGFR > 60.00
[2024-06-20 10:47] LABS: Free T4 0.38 ng/dl (0.78-2.19)
[2024-06-20 10:53] LABS: Band Neutrophils 4 % (0-3); Eosinophils 1 % (0-6); Lymphocytes 15 % (20-51); Metamyelocytes 2 % (-); Monocytes 3 % (2-9); Myelocytes 1 % (-); Platelets Checked Yes; Segmented Neutrophils 74 % (42-75)
[2024-06-20 10:54] LABS: Anisocytosis 1+; Normal RBC Morphology No; Polychromasia 1+
[2024-06-20 10:55] LABS: Tear Drop Red Blood Cells Slight; Total Cells Counted 100
[2024-06-22 15:46] LABS: Total T3 (Sendout) 40 ng/dL (80-200)
== END ==
LOC: REG 09:10
PROVIDERS: ATTENDING PHYSICIAN Internal Medicine Hematology & Oncology; FAMILY PHYSICIAN Nurse Practitioner Family
DX: C50.112 Malignant neoplasm of central portion of left female breast (principal); C79.51 Secondary malignant neoplasm of bone
CPT/HCPCS: 36415; 80053; 84439; 84443; 84480; 85025

== ENCOUNTER → 2024-06-27 09:52 | Outpatient (REF) | payer OTHER, SELFPAY ==
[2024-06-27 11:24] LABS: % Basophils 0.7 % (0-2); % Eosinophils 0.4 % (0-6); % Immature Granulocytes 1.6 % (0-0.5); % Lymphocytes 20.8 % (20.5-51.1); % Monocytes 3.6 % (1.7-9.3); % Neutrophils 72.9 % (42.2-75.2); Absolute Immature Granulocytes 0.1 10^3/uL (0-0.05); Absolute Lymphocytes 1.2 10^3/uL (1.2-3.4); Absolute Monocytes 0.2 10^3/uL (0.1-0.6); Hematocrit 24.8 % (37.0-47.0); Hemoglobin 7.9 g/dL (12.0-16.0); Mean Corp Hgb Conc. 31.9 g/dL (33.0-37.0); Mean Corpuscular Hgb 31.5 pg (27.0-31.0); Mean Corpuscular Volume 98.8 fL (81.0-99.0); Mean Platelet Volume 10.9 fL (7.4-10.4); Nucleated Red Blood Cells % 0.7 %; Platelet Count 105 10^3/uL (130-400); Red Blood Cell Count 2.51 10^6/uL (4.20-5.40); Red Cell Dist. Width 21.8 % (11.5-14.5); White Blood Cell Count 5.5 10^3/uL (4.8-10.8)
[2024-06-27 14:14] LABS: ALT (SGPT) 32 U/L (0-35); AST (SGOT) 35 U/L (14-36); Albumin 4.6 g/dl (3.5-5.0); Alkaline Phosphatase 203 U/L (38-126); Blood Urea Nitrogen 24 mg/dl (7-17); Calcium 8.2 mg/dl (8.4-10.2); Carbon Dioxide 24 mmol/L (22-30); Chloride 103 mmol/L (98-107); Glucose 91 mg/dl (70-99); Potassium 4.4 mmol/L (3.5-5.1); Sodium 138 mmol/L (135-145); Total Bilirubin 0.8 mg/dl (0.2-1.3); Total Protein 7.3 g/dl (6.3-8.2); eGFR > 60.00
== END ==
LOC: REG 09:52
PROVIDERS: ATTENDING PHYSICIAN Internal Medicine Hematology & Oncology; FAMILY PHYSICIAN Nurse Practitioner Family
DX: C50.112 Malignant neoplasm of central portion of left female breast (principal); C79.51 Secondary malignant neoplasm of bone
CPT/HCPCS: 36415; 80053; 85025

== ENCOUNTER 2024-07-02 09:39 | Outpatient (RCR) | payer OTHER, SELFPAY ==
[2024-07-02 10:29] VITALS: BP 133/63
[2024-07-02 10:46] VITALS: BP 133/63
[2024-07-02 11:07] VITALS: BP 114/74
[2024-07-02 13:03] VITALS: BP 120/79
== END 2024-07-26 23:59 | disposition home or self-care (01) ==
LOC: OID 09:39
PROVIDERS: ATTENDING PHYSICIAN Internal Medicine Hematology & Oncology; FAMILY PHYSICIAN Family Medicine
DX: C50.112 Malignant neoplasm of central portion of left female breast (principal); C79.51 Secondary malignant neoplasm of bone; R74.01 Elevation of levels of liver transaminase levels; Z17.1 Estrogen receptor negative status [ER-]
CPT/HCPCS: 36430; 86850; 86900; 86901; 86920; P9016

== ENCOUNTER → 2024-07-04 11:13 | Outpatient (REF) | payer OTHER, SELFPAY ==
[2024-07-04 12:57] LABS: Hematocrit 28.3 % (37.0-47.0); Hemoglobin 9.1 g/dL (12.0-16.0); Mean Corp Hgb Conc. 32.2 g/dL (33.0-37.0); Mean Corpuscular Hgb 31.8 pg (27.0-31.0); Mean Platelet Volume 11.4 fL (7.4-10.4); Platelet Count 132 10^3/uL (130-400); Red Blood Cell Count 2.86 10^6/uL (4.20-5.40); Red Cell Dist. Width 21.9 % (11.5-14.5); White Blood Cell Count 12.9 10^3/uL (4.8-10.8)
[2024-07-04 13:26] LABS: Free T4 0.51 ng/dl (0.78-2.19)
[2024-07-04 13:49] LABS: ALT (SGPT) 22 U/L (0-35); AST (SGOT) 32 U/L (14-36); Albumin 4.2 g/dl (3.5-5.0); Alkaline Phosphatase 164 U/L (38-126); Blood Urea Nitrogen 18 mg/dl (7-17); Calcium 8.8 mg/dl (8.4-10.2); Carbon Dioxide 25 mmol/L (22-30); Chloride 103 mmol/L (98-107); Glucose 79 mg/dl (70-99); Potassium 4.5 mmol/L (3.5-5.1); Sodium 138 mmol/L (135-145); Total Bilirubin 1.5 mg/dl (0.2-1.3); eGFR > 60.00
[2024-07-04 14:57] LABS: Atypical Lymphocytes 1 %; Band Neutrophils 4 % (0-3); Lymphocytes 8 % (20-51); Metamyelocytes 1 % (-); Monocytes 2 % (2-9); Segmented Neutrophils 82 % (42-75)
[2024-07-04 14:58] LABS: Anisocytosis 2+; Myelocytes 2 % (-); Platelets Checked Yes; Total Cells Counted 100
[2024-07-04 14:59] LABS: Normal RBC Morphology No; Polychromasia 1+
[2024-07-04 15:00] LABS: Macrocytosis Occasional; Ovalocytes 1+
[2024-07-06 06:41] LABS: Total T3 (Sendout) 49 ng/dL (80-200)
== END ==
LOC: REG 11:13
PROVIDERS: ATTENDING PHYSICIAN Internal Medicine Hematology & Oncology; FAMILY PHYSICIAN Nurse Practitioner Family
DX: C50.112 Malignant neoplasm of central portion of left female breast (principal); C79.51 Secondary malignant neoplasm of bone
CPT/HCPCS: 36415; 80053; 84439; 84443; 84480; 85025

== ENCOUNTER → 2024-07-11 09:37 | Outpatient (REF) | payer OTHER, SELFPAY ==
[2024-07-11 11:08] LABS: Hemoglobin 9.3 g/dL (12.0-16.0); Mean Corp Hgb Conc. 32.1 g/dL (33.0-37.0); Mean Corpuscular Volume 99.7 fL (81.0-99.0); Mean Platelet Volume 10.9 fL (7.4-10.4); Platelet Count 157 10^3/uL (130-400); Red Blood Cell Count 2.91 10^6/uL (4.20-5.40); Red Cell Dist. Width 21.8 % (11.5-14.5); White Blood Cell Count 19.1 10^3/uL (4.8-10.8)
[2024-07-11 11:11] LABS: ALT (SGPT) 22 U/L (0-35); AST (SGOT) 30 U/L (14-36); Albumin 4.5 g/dl (3.5-5.0); Alkaline Phosphatase 182 U/L (38-126); Blood Urea Nitrogen 23 mg/dl (7-17); Calcium 8.6 mg/dl (8.4-10.2); Carbon Dioxide 25 mmol/L (22-30); Chloride 107 mmol/L (98-107); Glucose 79 mg/dl (70-99); Potassium 4.3 mmol/L (3.5-5.1); Sodium 140 mmol/L (135-145); Total Bilirubin 0.8 mg/dl (0.2-1.3); Total Protein 7.3 g/dl (6.3-8.2); eGFR > 60.00
[2024-07-11 11:13] LABS: Absolute Neutrophils -Man Diff 15.4 10^3/uL (1.4-6.5); Band Neutrophils 8 % (0-3); Lymphocytes 12 % (20-51); Monocytes 3 % (2-9); Segmented Neutrophils 73 % (42-75)
[2024-07-11 11:14] LABS: Anisocytosis 1+; Metamyelocytes 1 % (-); Myelocytes 3 % (-); Normal RBC Morphology No; Nucleated Red Blood Cells 2 (-); Platelets Checked Yes
[2024-07-11 11:15] LABS: Hypochromasia 1+; Ovalocytes 1+; Polychromasia 1+; Total Cells Counted 100
[2024-07-11 11:26] LABS: Free T4 0.52 ng/dl (0.78-2.19)
[2024-07-13 01:30] LABS: Total T3 (Sendout) 59 ng/dL (80-200)
== END ==
LOC: REG 09:37
PROVIDERS: ATTENDING PHYSICIAN Internal Medicine Hematology & Oncology
DX: C50.112 Malignant neoplasm of central portion of left female breast (principal); C79.51 Secondary malignant neoplasm of bone
CPT/HCPCS: 36415; 80053; 84439; 84443; 84480; 85025

== ENCOUNTER → 2024-07-18 09:14 | Outpatient (REF) | payer OTHER, SELFPAY ==
[2024-07-18 10:23] LABS: % Basophils 0.8 % (0-2); % Eosinophils 1.1 % (0-6); % Immature Granulocytes 1.2 % (0-0.5); % Lymphocytes 18.2 % (20.5-51.1); % Monocytes 4.7 % (1.7-9.3); Absolute Basophils 0.1 10^3/uL (0-0.2); Absolute Eosinophils 0.1 10^3/uL (0-0.7); Absolute Immature Granulocytes 0.1 10^3/uL (0-0.05); Absolute Lymphocytes 1.2 10^3/uL (1.2-3.4); Absolute Monocytes 0.3 10^3/uL (0.1-0.6); Absolute Neutrophils 4.8 10^3/uL (1.4-6.5); Hematocrit 29.5 % (37.0-47.0); Hemoglobin 9.5 g/dL (12.0-16.0); Mean Corp Hgb Conc. 32.2 g/dL (33.0-37.0); Mean Corpuscular Hgb 31.5 pg (27.0-31.0); Mean Corpuscular Volume 97.7 fL (81.0-99.0); Mean Platelet Volume 10.5 fL (7.4-10.4); Nucleated Red Blood Cells % 0.8 %; Platelet Count 140 10^3/uL (130-400); Red Blood Cell Count 3.02 10^6/uL (4.20-5.40); Red Cell Dist. Width 21.2 % (11.5-14.5); White Blood Cell Count 6.4 10^3/uL (4.8-10.8)
[2024-07-18 11:06] LABS: ALT (SGPT) 24 U/L (0-35); AST (SGOT) 34 U/L (14-36); Albumin 4.5 g/dl (3.5-5.0); Alkaline Phosphatase 191 U/L (38-126); Blood Urea Nitrogen 20 mg/dl (7-17); Calcium 8.8 mg/dl (8.4-10.2); Carbon Dioxide 30 mmol/L (22-30); Chloride 105 mmol/L (98-107); Glucose 89 mg/dl (70-99); Potassium 4.5 mmol/L (3.5-5.1); Sodium 140 mmol/L (135-145); Total Bilirubin 0.8 mg/dl (0.2-1.3); Total Protein 7.7 g/dl (6.3-8.2); eGFR > 60.00
== END ==
LOC: REG 09:14
PROVIDERS: ATTENDING PHYSICIAN Internal Medicine Hematology & Oncology; FAMILY PHYSICIAN Nurse Practitioner Family
DX: C50.112 Malignant neoplasm of central portion of left female breast (principal); C79.51 Secondary malignant neoplasm of bone
CPT/HCPCS: 36415; 80053; 85025

== ENCOUNTER → 2024-07-25 09:34 | Outpatient (REF) | payer OTHER, SELFPAY ==
[2024-07-25 10:57] LABS: % Basophils 1.4 % (0-2); % Eosinophils 2.3 % (0-6); % Immature Granulocytes 1.9 % (0-0.5); % Lymphocytes 20.5 % (20.5-51.1); % Monocytes 7.3 % (1.7-9.3); % Neutrophils 66.6 % (42.2-75.2); Absolute Basophils 0.1 10^3/uL (0-0.2); Absolute Eosinophils 0.1 10^3/uL (0-0.7); Absolute Immature Granulocytes 0.1 10^3/uL (0-0.05); Absolute Lymphocytes 1.2 10^3/uL (1.2-3.4); Absolute Monocytes 0.4 10^3/uL (0.1-0.6); Absolute Neutrophils 3.8 10^3/uL (1.4-6.5); Hematocrit 29.1 % (37.0-47.0); Hemoglobin 9.3 g/dL (12.0-16.0); Mean Corpuscular Hgb 31.5 pg (27.0-31.0); Mean Corpuscular Volume 98.6 fL (81.0-99.0); Mean Platelet Volume 10.2 fL (7.4-10.4); Nucleated Red Blood Cells % 0.7 %; Platelet Count 201 10^3/uL (130-400); Red Blood Cell Count 2.95 10^6/uL (4.20-5.40); Red Cell Dist. Width 21.2 % (11.5-14.5); White Blood Cell Count 5.7 10^3/uL (4.8-10.8)
[2024-07-25 11:00] LABS: ALT (SGPT) 20 U/L (0-35); AST (SGOT) 31 U/L (14-36); Albumin 4.4 g/dl (3.5-5.0); Alkaline Phosphatase 151 U/L (38-126); Blood Urea Nitrogen 21 mg/dl (7-17); Calcium 9.4 mg/dl (8.4-10.2); Carbon Dioxide 27 mmol/L (22-30); Chloride 104 mmol/L (98-107); Glucose 78 mg/dl (70-99); Potassium 4.4 mmol/L (3.5-5.1); Sodium 137 mmol/L (135-145); Total Bilirubin 0.7 mg/dl (0.2-1.3); Total Protein 7.3 g/dl (6.3-8.2); eGFR > 60.00
== END ==
LOC: REG 09:34
PROVIDERS: ATTENDING PHYSICIAN Internal Medicine Hematology & Oncology; FAMILY PHYSICIAN Nurse Practitioner Family
DX: C50.112 Malignant neoplasm of central portion of left female breast (principal); C79.51 Secondary malignant neoplasm of bone
CPT/HCPCS: 36415; 80053; 85025

== ENCOUNTER → 2024-08-01 09:41 | Outpatient (REF) | payer OTHER, SELFPAY ==
[2024-08-01 10:36] LABS: % Basophils 1.2 % (0-2); % Eosinophils 3.8 % (0-6); % Immature Granulocytes 0.6 % (0-0.5); % Lymphocytes 23.6 % (20.5-51.1); % Monocytes 7.3 % (1.7-9.3); % Neutrophils 63.5 % (42.2-75.2); Absolute Basophils 0.1 10^3/uL (0-0.2); Absolute Eosinophils 0.2 10^3/uL (0-0.7); Absolute Lymphocytes 1.2 10^3/uL (1.2-3.4); Absolute Monocytes 0.4 10^3/uL (0.1-0.6); Absolute Neutrophils 3.2 10^3/uL (1.4-6.5); Hematocrit 30.3 % (37.0-47.0); Hemoglobin 9.4 g/dL (12.0-16.0); Mean Corpuscular Hgb 30.7 pg (27.0-31.0); Mean Platelet Volume 9.4 fL (7.4-10.4); Nucleated Red Blood Cells % 0 %; Platelet Count 245 10^3/uL (130-400); Red Blood Cell Count 3.06 10^6/uL (4.20-5.40); Red Cell Dist. Width 21.2 % (11.5-14.5); White Blood Cell Count 5.1 10^3/uL (4.8-10.8)
[2024-08-01 11:40] LABS: ALT (SGPT) 19 U/L (0-35); AST (SGOT) 31 U/L (14-36); Albumin 4.3 g/dl (3.5-5.0); Alkaline Phosphatase 160 U/L (38-126); Blood Urea Nitrogen 21 mg/dl (7-17); Calcium 8.3 mg/dl (8.4-10.2); Carbon Dioxide 24 mmol/L (22-30); Chloride 107 mmol/L (98-107); Glucose 88 mg/dl (70-99); Potassium 4.3 mmol/L (3.5-5.1); Sodium 140 mmol/L (135-145); Total Bilirubin 0.8 mg/dl (0.2-1.3); Total Protein 7.3 g/dl (6.3-8.2); eGFR > 60.00
[2024-08-01 16:54] LABS: Free T4 0.64 ng/dl (0.78-2.19)
[2024-08-03 18:23] LABS: Total T3 (Sendout) 72 ng/dL (80-200)
== END ==
LOC: REG 09:41
PROVIDERS: ATTENDING PHYSICIAN Internal Medicine Hematology & Oncology; FAMILY PHYSICIAN Nurse Practitioner Family
DX: C50.112 Malignant neoplasm of central portion of left female breast (principal); C79.51 Secondary malignant neoplasm of bone
CPT/HCPCS: 36415; 80053; 84439; 84443; 84480; 85025

== ENCOUNTER → 2024-08-30 08:22 | Outpatient (REF) | payer OTHER, SELFPAY ==
[2024-08-30 09:33] LABS: Hematocrit 34.6 % (37.0-47.0); Hemoglobin 11.2 g/dL (12.0-16.0); Mean Corp Hgb Conc. 32.4 g/dL (33.0-37.0); Mean Corpuscular Volume 95.1 fL (81.0-99.0); Nucleated Red Blood Cells % 0 %; Platelet Count 267 10^3/uL (130-400); Red Cell Dist. Width 17.6 % (11.5-14.5)
[2024-08-30 09:59] LABS: ALT (SGPT) 22 U/L (0-35); AST (SGOT) 34 U/L (14-36); Albumin 4.4 g/dl (3.5-5.0); Alkaline Phosphatase 140 U/L (38-126); Blood Urea Nitrogen 20 mg/dl (7-17); Calcium 9.1 mg/dl (8.4-10.2); Carbon Dioxide 26 mmol/L (22-30); Chloride 106 mmol/L (98-107); Glucose 80 mg/dl (70-99); Potassium 4.5 mmol/L (3.5-5.1); Sodium 137 mmol/L (135-145); Total Protein 7.8 g/dl (6.3-8.2); eGFR > 60.00
[2024-08-30 10:31] LABS: TSH 39.30 uIU/ml (0.47-4.68)
[2024-09-01 12:39] LABS: Total T3 (Sendout) 79 ng/dL (80-200)
== END ==
LOC: REG 08:22
PROVIDERS: ATTENDING PHYSICIAN Internal Medicine Hematology & Oncology; FAMILY PHYSICIAN Nurse Practitioner Family
DX: C50.112 Malignant neoplasm of central portion of left female breast (principal); C79.51 Secondary malignant neoplasm of bone
CPT/HCPCS: 36415; 80053; 84439; 84443; 84480; 85025

== ENCOUNTER → 2024-09-05 13:17 | Outpatient (REF) | payer OTHER, SELFPAY ==
[2024-09-05 14:10] LABS: Hematocrit 33.0 % (37.0-47.0); Hemoglobin 10.8 g/dL (12.0-16.0); Mean Corp Hgb Conc. 32.7 g/dL (33.0-37.0); Mean Corpuscular Volume 93.5 fL (81.0-99.0); Nucleated Red Blood Cells % 0 %; Platelet Count 276 10^3/uL (130-400); Red Cell Dist. Width 16.9 % (11.5-14.5)
[2024-09-05 14:51] LABS: ALT (SGPT) 23 U/L (0-35); AST (SGOT) 32 U/L (14-36); Albumin 4.3 g/dl (3.5-5.0); Alkaline Phosphatase 143 U/L (38-126); Blood Urea Nitrogen 26 mg/dl (7-17); Calcium 8.4 mg/dl (8.4-10.2); Carbon Dioxide 24 mmol/L (22-30); Chloride 106 mmol/L (98-107); Glucose 121 mg/dl (70-99); Potassium 4.4 mmol/L (3.5-5.1); Sodium 136 mmol/L (135-145); Total Protein 7.4 g/dl (6.3-8.2); eGFR > 60.00
[2024-09-05 15:24] LABS: TSH 24.90 uIU/ml (0.47-4.68)
[2024-09-09 00:11] LABS: Total T3 (Sendout) 78 ng/dL (80-200)
== END ==
LOC: REG 13:17
PROVIDERS: ATTENDING PHYSICIAN Internal Medicine Hematology & Oncology; FAMILY PHYSICIAN Nurse Practitioner Family
DX: C50.112 Malignant neoplasm of central portion of left female breast (principal); C79.51 Secondary malignant neoplasm of bone
CPT/HCPCS: 36415; 80053; 84439; 84443; 84480; 85025

== ENCOUNTER → 2024-09-13 09:24 | Outpatient (REF) | payer OTHER, SELFPAY ==
[2024-09-13 10:30] LABS: Hematocrit 33.8 % (37.0-47.0); Hemoglobin 10.7 g/dL (12.0-16.0); Mean Corp Hgb Conc. 31.7 g/dL (33.0-37.0); Mean Corpuscular Volume 94.2 fL (81.0-99.0); Nucleated Red Blood Cells % 0 %; Platelet Count 261 10^3/uL (130-400); Red Cell Dist. Width 17.1 % (11.5-14.5)
[2024-09-13 10:58] LABS: ALT (SGPT) 29 U/L (0-35); AST (SGOT) 38 U/L (14-36); Albumin 4.2 g/dl (3.5-5.0); Alkaline Phosphatase 176 U/L (38-126); Blood Urea Nitrogen 24 mg/dl (7-17); Calcium 8.3 mg/dl (8.4-10.2); Carbon Dioxide 25 mmol/L (22-30); Chloride 107 mmol/L (98-107); Glucose 82 mg/dl (70-99); Potassium 4.4 mmol/L (3.5-5.1); Sodium 139 mmol/L (135-145); Total Protein 7.4 g/dl (6.3-8.2); eGFR > 60.00
== END ==
LOC: REG 09:24
PROVIDERS: ATTENDING PHYSICIAN Internal Medicine Hematology & Oncology; FAMILY PHYSICIAN Nurse Practitioner Family
DX: C50.112 Malignant neoplasm of central portion of left female breast (principal); C79.51 Secondary malignant neoplasm of bone; R74.01 Elevation of levels of liver transaminase levels; D64.81 Anemia due to antineoplastic chemotherapy
CPT/HCPCS: 36415; 80053; 85025

== ENCOUNTER → 2024-09-20 10:00 | Outpatient (REF) | payer OTHER, SELFPAY ==
[2024-09-20 12:23] LABS: Hematocrit 33.8 % (37.0-47.0); Hemoglobin 10.7 g/dL (12.0-16.0); Mean Corp Hgb Conc. 31.7 g/dL (33.0-37.0); Mean Corpuscular Volume 93.4 fL (81.0-99.0); Nucleated Red Blood Cells % 0 %; Platelet Count 321 10^3/uL (130-400); Red Cell Dist. Width 16.4 % (11.5-14.5)
[2024-09-20 12:50] LABS: ALT (SGPT) 35 U/L (0-35); AST (SGOT) 54 U/L (14-36); Albumin 4.3 g/dl (3.5-5.0); Alkaline Phosphatase 210 U/L (38-126); Blood Urea Nitrogen 26 mg/dl (7-17); Calcium 8.9 mg/dl (8.4-10.2); Carbon Dioxide 28 mmol/L (22-30); Chloride 105 mmol/L (98-107); Glucose 91 mg/dl (70-99); Potassium 4.5 mmol/L (3.5-5.1); Sodium 139 mmol/L (135-145); Total Protein 7.6 g/dl (6.3-8.2); eGFR > 60.00
[2024-09-20 13:07] LABS: Free T3 3.78 pg/ml (2.77-5.27)
[2024-09-20 13:19] LABS: TSH 16.30 uIU/ml (0.47-4.68)
== END ==
LOC: REG 10:00
PROVIDERS: ATTENDING PHYSICIAN Internal Medicine Hematology & Oncology; FAMILY PHYSICIAN Nurse Practitioner Family
DX: C50.112 Malignant neoplasm of central portion of left female breast (principal); C79.51 Secondary malignant neoplasm of bone; R74.01 Elevation of levels of liver transaminase levels; D64.81 Anemia due to antineoplastic chemotherapy
CPT/HCPCS: 36415; 80053; 84439; 84443; 84481; 85025

== ENCOUNTER → 2024-09-24 10:13 | Outpatient (REF) | payer OTHER, SELFPAY | LOC: PET 10:13 | PROVIDERS: ATTENDING PHYSICIAN Nurse Practitioner Adult Health | DX: C50.112 Malignant neoplasm of central portion of left female breast (principal) | CPT/HCPCS: 78815; A9552 ==

== ENCOUNTER → 2024-10-04 10:34 | Outpatient (REF) | payer OTHER, SELFPAY ==
[2024-10-04 12:10] LABS: Hematocrit 36.2 % (37.0-47.0); Hemoglobin 11.7 g/dL (12.0-16.0); Mean Corp Hgb Conc. 32.3 g/dL (33.0-37.0); Mean Corpuscular Volume 91.0 fL (81.0-99.0); Nucleated Red Blood Cells % 0 %; Platelet Count 308 10^3/uL (130-400); Red Cell Dist. Width 16.0 % (11.5-14.5)
[2024-10-04 12:38] LABS: ALT (SGPT) 28 U/L (0-35); AST (SGOT) 41 U/L (14-36); Albumin 4.3 g/dl (3.5-5.0); Alkaline Phosphatase 164 U/L (38-126); Blood Urea Nitrogen 19 mg/dl (7-17); Calcium 8.9 mg/dl (8.4-10.2); Carbon Dioxide 26 mmol/L (22-30); Chloride 106 mmol/L (98-107); Glucose 110 mg/dl (70-99); Potassium 4.3 mmol/L (3.5-5.1); Sodium 139 mmol/L (135-145); Total Protein 7.7 g/dl (6.3-8.2); eGFR > 60.00
[2024-10-04 13:08] LABS: TSH 15.90 uIU/ml (0.47-4.68)
== END ==
LOC: REG 10:34
PROVIDERS: ATTENDING PHYSICIAN Internal Medicine Hematology & Oncology; FAMILY PHYSICIAN Nurse Practitioner Family; REFERRING PHYSICIAN Nurse Practitioner Adult Health
DX: C50.112 Malignant neoplasm of central portion of left female breast (principal); C79.51 Secondary malignant neoplasm of bone; R74.01 Elevation of levels of liver transaminase levels; D64.81 Anemia due to antineoplastic chemotherapy
CPT/HCPCS: 36415; 80053; 82248; 84439; 84443; 84480; 85025

== ENCOUNTER → 2024-10-18 09:52 | Outpatient (REF) | payer OTHER, SELFPAY ==
[2024-10-18 10:42] LABS: Hematocrit 33.7 % (37.0-47.0); Hemoglobin 11.3 g/dL (12.0-16.0); Mean Corp Hgb Conc. 33.5 g/dL (33.0-37.0); Mean Corpuscular Volume 89.9 fL (81.0-99.0); Nucleated Red Blood Cells % 0 %; Platelet Count 280 10^3/uL (130-400); Red Cell Dist. Width 16.0 % (11.5-14.5)
[2024-10-18 11:07] LABS: ALT (SGPT) 29 U/L (0-35); AST (SGOT) 42 U/L (14-36); Albumin 4.1 g/dl (3.5-5.0); Alkaline Phosphatase 195 U/L (38-126); Blood Urea Nitrogen 20 mg/dl (7-17); Calcium 8.6 mg/dl (8.4-10.2); Carbon Dioxide 26 mmol/L (22-30); Chloride 107 mmol/L (98-107); Glucose 101 mg/dl (70-99); Potassium 4.3 mmol/L (3.5-5.1); Sodium 140 mmol/L (135-145); Total Protein 7.2 g/dl (6.3-8.2); eGFR > 60.00
== END ==
LOC: REG 09:52
PROVIDERS: ATTENDING PHYSICIAN Internal Medicine Hematology & Oncology; FAMILY PHYSICIAN Nurse Practitioner Family
DX: C50.112 Malignant neoplasm of central portion of left female breast (principal); C79.51 Secondary malignant neoplasm of bone; R74.01 Elevation of levels of liver transaminase levels; D64.81 Anemia due to antineoplastic chemotherapy
CPT/HCPCS: 36415; 80053; 85025

== ENCOUNTER → 2024-11-24 07:30 | Outpatient (REF) | payer OTHER, SELFPAY ==
[2024-11-24 09:56] LABS: Hematocrit 34.5 % (37.0-47.0); Hemoglobin 11.3 g/dL (12.0-16.0); Mean Corp Hgb Conc. 32.8 g/dL (33.0-37.0); Mean Corpuscular Volume 86.9 fL (81.0-99.0); Nucleated Red Blood Cells % 0 %; Platelet Count 271 10^3/uL (130-400); Red Cell Dist. Width 16.6 % (11.5-14.5)
[2024-11-24 11:04] LABS: ALT (SGPT) 32 U/L (0-35); AST (SGOT) 38 U/L (14-36); Albumin 4.1 g/dl (3.5-5.0); Alkaline Phosphatase 170 U/L (38-126); Blood Urea Nitrogen 21 mg/dl (7-17); Calcium 8.5 mg/dl (8.4-10.2); Carbon Dioxide 25 mmol/L (22-30); Chloride 107 mmol/L (98-107); Glucose 92 mg/dl (70-99); Potassium 4.4 mmol/L (3.5-5.1); Sodium 139 mmol/L (135-145); Total Protein 7.3 g/dl (6.3-8.2); eGFR > 60.00
== END ==
LOC: REG 07:30
PROVIDERS: ATTENDING PHYSICIAN Internal Medicine Hematology & Oncology; FAMILY PHYSICIAN Nurse Practitioner Family
DX: C50.112 Malignant neoplasm of central portion of left female breast (principal); C79.51 Secondary malignant neoplasm of bone; R74.01 Elevation of levels of liver transaminase levels; D64.81 Anemia due to antineoplastic chemotherapy
CPT/HCPCS: 36415; 80053; 84439; 84443; 85025

== ENCOUNTER → 2024-12-10 16:07 | Outpatient (REF) | payer OTHER, SELFPAY | LOC: MRI 16:07 | PROVIDERS: ATTENDING PHYSICIAN Internal Medicine Hematology & Oncology; FAMILY PHYSICIAN Nurse Practitioner Family | DX: D64.81 Anemia due to antineoplastic chemotherapy (principal) | CPT/HCPCS: 70553; A9575 ==

== ENCOUNTER → 2024-12-15 08:44 | Outpatient (REF) | payer OTHER, SELFPAY ==
[2024-12-15 10:22] LABS: Hematocrit 36.7 % (37.0-47.0); Hemoglobin 11.2 g/dL (12.0-16.0); Mean Corp Hgb Conc. 30.5 g/dL (33.0-37.0); Mean Corpuscular Volume 89.7 fL (81.0-99.0); Nucleated Red Blood Cells % 0 %; Platelet Count 267 10^3/uL (130-400); Red Cell Dist. Width 17.3 % (11.5-14.5)
[2024-12-15 10:53] LABS: ALT (SGPT) 26 U/L (0-35); AST (SGOT) 36 U/L (14-36); Albumin 4.2 g/dl (3.5-5.0); Alkaline Phosphatase 159 U/L (38-126); Blood Urea Nitrogen 24 mg/dl (7-17); Calcium 8.4 mg/dl (8.4-10.2); Carbon Dioxide 24 mmol/L (22-30); Chloride 106 mmol/L (98-107); Glucose 90 mg/dl (70-99); Potassium 4.4 mmol/L (3.5-5.1); Sodium 138 mmol/L (135-145); Total Protein 7.5 g/dl (6.3-8.2); eGFR > 60.00
== END ==
LOC: REG 08:44
PROVIDERS: ATTENDING PHYSICIAN Internal Medicine Hematology & Oncology
DX: C50.112 Malignant neoplasm of central portion of left female breast (principal); C79.51 Secondary malignant neoplasm of bone; R74.01 Elevation of levels of liver transaminase levels; D64.81 Anemia due to antineoplastic chemotherapy
CPT/HCPCS: 36415; 80053; 84439; 84443; 85025

== ENCOUNTER → 2025-01-03 09:21 | Outpatient (REF) | payer OTHER, SELFPAY ==
[2025-01-03 10:36] LABS: Hematocrit 34.0 % (37.0-47.0); Hemoglobin 11.2 g/dL (12.0-16.0); Mean Corp Hgb Conc. 32.9 g/dL (33.0-37.0); Mean Corpuscular Volume 87.2 fL (81.0-99.0); Nucleated Red Blood Cells % 0 %; Platelet Count 266 10^3/uL (130-400); Red Cell Dist. Width 18.3 % (11.5-14.5)
[2025-01-03 10:43] LABS: ALT (SGPT) 30 U/L (0-35); AST (SGOT) 38 U/L (14-36); Albumin 4.3 g/dl (3.5-5.0); Alkaline Phosphatase 178 U/L (38-126); Blood Urea Nitrogen 22 mg/dl (7-17); Calcium 9.1 mg/dl (8.4-10.2); Carbon Dioxide 27 mmol/L (22-30); Chloride 101 mmol/L (98-107); Glucose 91 mg/dl (70-99); Potassium 4.4 mmol/L (3.5-5.1); Sodium 134 mmol/L (135-145); Total Protein 7.6 g/dl (6.3-8.2); eGFR > 60.00
== END ==
LOC: REG 09:21
PROVIDERS: ATTENDING PHYSICIAN Internal Medicine Hematology & Oncology
DX: C50.112 Malignant neoplasm of central portion of left female breast (principal); C79.51 Secondary malignant neoplasm of bone; R74.01 Elevation of levels of liver transaminase levels; D64.81 Anemia due to antineoplastic chemotherapy
CPT/HCPCS: 36415; 80053; 84439; 84443; 85025

== ENCOUNTER → 2025-01-31 09:15 | Outpatient (REF) | payer OTHER, SELFPAY ==
[2025-01-31 11:05] LABS: Hematocrit 35.4 % (37.0-47.0); Hemoglobin 10.9 g/dL (12.0-16.0); Mean Corp Hgb Conc. 30.8 g/dL (33.0-37.0); Mean Corpuscular Volume 90.1 fL (81.0-99.0); Nucleated Red Blood Cells % 0 %; Platelet Count 283 10^3/uL (130-400); Red Cell Dist. Width 18.1 % (11.5-14.5)
[2025-01-31 11:56] LABS: ALT (SGPT) 32 U/L (0-35); AST (SGOT) 41 U/L (14-36); Albumin 4.3 g/dl (3.5-5.0); Alkaline Phosphatase 179 U/L (38-126); Blood Urea Nitrogen 23 mg/dl (7-17); Calcium 8.8 mg/dl (8.4-10.2); Carbon Dioxide 27 mmol/L (22-30); Chloride 102 mmol/L (98-107); Glucose 87 mg/dl (70-99); Potassium 4.7 mmol/L (3.5-5.1); Sodium 135 mmol/L (135-145); Total Protein 7.6 g/dl (6.3-8.2); eGFR > 60.00
== END ==
LOC: REG 09:15
PROVIDERS: ATTENDING PHYSICIAN Internal Medicine Hematology & Oncology
DX: C50.112 Malignant neoplasm of central portion of left female breast (principal); C79.51 Secondary malignant neoplasm of bone; R74.01 Elevation of levels of liver transaminase levels; D64.81 Anemia due to antineoplastic chemotherapy
CPT/HCPCS: 36415; 80053; 84439; 84443; 85025

== ENCOUNTER → 2025-02-23 09:26 | Outpatient (REF) | payer OTHER, SELFPAY ==
[2025-02-23 10:50] LABS: Hematocrit 33.2 % (37.0-47.0); Hemoglobin 10.9 g/dL (12.0-16.0); Mean Corp Hgb Conc. 32.8 g/dL (33.0-37.0); Mean Corpuscular Volume 88.8 fL (81.0-99.0); Nucleated Red Blood Cells % 0.3 %; Platelet Count 258 10^3/uL (130-400); Red Cell Dist. Width 18.0 % (11.5-14.5)
[2025-02-23 11:17] LABS: ALT (SGPT) 43 U/L (0-35); AST (SGOT) 52 U/L (14-36); Albumin 4.4 g/dl (3.5-5.0); Alkaline Phosphatase 213 U/L (38-126); Blood Urea Nitrogen 21 mg/dl (7-17); Calcium 9.2 mg/dl (8.4-10.2); Carbon Dioxide 24 mmol/L (22-30); Chloride 102 mmol/L (98-107); Glucose 91 mg/dl (70-99); Potassium 4.7 mmol/L (3.5-5.1); Sodium 135 mmol/L (135-145); Total Protein 7.7 g/dl (6.3-8.2); eGFR > 60.00
== END ==
LOC: REG 09:26
PROVIDERS: ATTENDING PHYSICIAN Internal Medicine Hematology & Oncology
DX: C50.112 Malignant neoplasm of central portion of left female breast (principal); C79.51 Secondary malignant neoplasm of bone; R74.01 Elevation of levels of liver transaminase levels; D64.81 Anemia due to antineoplastic chemotherapy
CPT/HCPCS: 36415; 80053; 84439; 84443; 85025